=== PATIENT | male | born 1975 | race Caucasian/White ===

== ENCOUNTER → 2021-05-27 | Day surgery (SDC) | payer OTHER ==
[~2021-05-27] VITALS: Ht 167.6 cm; Wt 87.1 kg
[~2021-05-27] MED LIST: BYSTOLIC10 M1 PO; NEXIUM40 MG PO
== END | disposition home or self-care (01) ==
LOC: FAS 09:42
DX: R19.5 Other fecal abnormalities (principal); I10 Essential (primary) hypertension; K21.9 Gastro-esophageal reflux disease without esophagitis; Z87.891 Personal history of nicotine dependence; Z79.899 Other long term (current) drug therapy; Z80.0 Family history of malignant neoplasm of digestive organs
CPT/HCPCS: 93005; J1610; J2250; J2704; J7120